=== PATIENT | female | born 1990 | race Caucasian/White ===

== ENCOUNTER 2020-02-26 | Emergency (ER) | payer OTHER ==
[~2020-02-26] VITALS: Ht 157.5 cm; Wt 67.1 kg
[2020-02-26 00:11] VITALS: Ht 157.5 cm; Wt 67.1 kg
[2020-02-26 02:05] VITALS: BP 120/81
== END 2020-02-26 02:05 | disposition home or self-care (01) ==
LOC: ED
DX: L50.9 Urticaria, unspecified (principal)
CPT/HCPCS: J1200; J7512